=== PATIENT | male | born 1960 | race Native Hawaiian/Other Pacific Islander ===

== ENCOUNTER 2022-08-07 13:23 | Emergency (ER) | payer OTHER, SELFPAY ==
--- NOTE | ~2022-08-07 | XR_ITS ---
EXAMINATION: XR CHEST CLINICAL INFORMATION: Cough and shortness of breath COMPARISON: None TECHNIQUE: 2 views of the chest were obtained. FINDINGS: The lungs appear clear. No airspace consolidation, pleural effusion, or pneumothorax. Small 2 mm nodular density in the right lower lung, which may represent a bone island or calcified granuloma. Slightly tortuous descending thoracic aorta. Otherwise, normal cardiomediastinal silhouette. No evidence of pulmonary edema. No acute osseous injury. XR/XR chest 2V IMPRESSION: 1. No acute pulmonary process.
[2022-08-07 13:54] VITALS: BP 144/75; PULSE 65; RESP 18; TEMP 36.8; O2SAT 98; BMI 23.8
--- NOTE | 2022-08-07 13:54 | ED_ITS ---
HPI - URI/Sore Throat General Chief Complaint: Upper Respiratory Symptoms <KATIE Rodriguez Last Filed: 08/07/22 13:57> Stated Complaint: Cough Chest Discomfort <KTAIE Rodriguez Last Filed: 08/07/22 13:57> Time Seen by Provider: 08/07/22 15:04 <KATIE Rodriguez - Last Filed: 08/07/22 13:57> Source: patient <KATIE Bermudez Last Filed: 08/07/22 17:06> Mode of arrival: ambulatory <KATIE Bermudez Last Filed: 08/07/22 17:06> Limitations: no limitations <KATIE Bermudez Last Filed: 08/07/22 17:06> History of Present Illness HPI Narrative: 61-year-old male presents to the ER for evaluation of productive cough for the last 1 month. He states he went to [facility] twice and had x- rays and viral test done that were unremarkable. He has been given a prescription of Augmentin which he completed. He has been taking Tessalon Oksana es with minimal relief. He was at urgent care today And was encouraged to come to the ER because he was complaining of chest discomfort. They recommended him to have blood tests. Patient states he has had chest discomfort when coughing only. It is worse when he touches his chest wall and coughs. He denies any pleuritic chest pain. The pain does not radiate. reports that everyone at home has been sick. <KATIE Bermudez Last Filed: 08/07/22 17:06> MD elicited complaint: cough <KATIE Bermudez Last Filed: 08/07/22 17:06> Onset (ago): week(s) (3) <KATIE Bermudez Last Filed: 08/07/22 17:06> Consistency: constant <KATIE Bermudez Last Filed: 08/07/22 17:06> Severity: moderate <KATIE Bermudez Last Filed: 08/07/22 17:06> Description of mucous: yellow <KATIE Bermudez Last Filed: 08/07/22 17:06> Able to tolerate fluids by mouth: Yes <KATIE Bermudez Last Filed: 08/07/22 17:06> Relieving factors: nothing <KATIE Bermudez Last Filed: 08/07/22 17:06> Context: sick contacts <KATIE Bermudez Last Filed: 08/07/22 17:06> Associated symptoms: sore throat, cough, chest pain and shortness of breath <KATIE Bermudez Last Filed: 08/07/22 17:06> Treatments prior to arrival: none <KATIE Bermudez Last Filed: 08/07/22 17:06> Related Data Home Medications: Previous Rx's Medication Instructions Recorded azithromycin 250 mg tablet See Rx Instructions PO .COMPLEX #6 08/07/22 (Zithromax Z-Tulio) tabs guaifenesin 1,200 mg tablet, 1,200 mg PO BID #14 tabs 08/07/22 extended release 12 hr (Mucinex) hydrocodone-homatropine 5 mg-1.5 5 ml PO Q4-6H PRN cough #60 mL 08/07/22 mg/5 mL (5 mL) oral syrup (Hycodan) prednisone 20 mg tablet 40 mg PO DAILY #10 tabs 08/07/22 <KATIE Rodriguez Last Filed: 08/07/22 13:57> Allergies/Adverse Reactions: Allergies Allergy/AdvReac Type Severity Reaction Status Date / Time No Known Allergies Allergy Verified 08/07/22 13:54 <KATIE Rodriguez Last Filed: 08/07/22 13:57> Review of Systems Review of Systems: Constitutional: No Fever, No Chills ENT/Mouth: No sore throat, No Rhinorrhea, No Swallowing Difficulty Eyes: No Eye Pain, No Swelling, No Redness Cardiovascular: + Chest Pain, No SOB, No Orthopnea, No Edema Respiratory: + Cough, + Sputum, No Wheezing, No dyspnea Gastrointestinal: No Nausea, No Vomiting, No Diarrhea, No abdominal Pain Musculoskeletal: No joint pain, No Myalgias Skin: No Skin Lesions, No rash Neuro: No Weakness, No Numbness, No Dizziness, + Headache Heme/Lymph: No Bruising, No Lymphadenopathy <KATIE Bermudez Last Filed: 08/07/22 17:06> PMFSH Social History Social History: Social History Advance Directives: No Advance Directives Information Provided: No <KATIE Rodriguez - Last Filed: 08/07/22 13:57> Physical Exam Vital Signs: Vital Signs: Last Vital Signs Temp 98.3 F 08/07/22 13:54 Pulse 65 08/07/22 13:54 Resp 18 08/07/22 13:54 BP 144/75 H 08/07/22 13:54 Pulse Ox 98 08/07/22 13:54 O2 Del Method 08/07/22 13:54 BMI result Body Mass Index 23.8 <KATIE Rodriguez - Last Filed: 08/07/22 13:57> Vital Signs: Last Vital Signs Temp 98.3 F 08/07/22 13:54 Pulse 65 08/07/22 13:54 Resp 18 08/07/22 13:54 BP 144/75 H 08/07/22 13:54 Pulse Ox 98 08/07/22 13:54 O2 Del Method 08/07/22 13:54 BMI result Body Mass Index 23.8 <KATIE Bermudez - Last Filed: 08/07/22 17:06> Appearance: Alert. Oriented X3. No acute distress. Eyes: Pupils equal, round and reactive to light. ENT: Pharynx With moist mucous membranes, moderate posterior pharyngeal erythema without tonsillar swelling or exudate. Uvula midline. Neck: Normal inspection. Neck supple. No lymphadenopathy CVS: Normal heart rate and rhythm. Pulses normal. Anterior chest wall ten derness throughout. dry hacking cough noted. Respiratory: No respiratory distress. Breath sounds normal. Abdomen: Soft and nontender. +BS x4 Skin: Skin warm and dry. Normal skin color. Normal skin turgor. No rashes. Extremities: No lower extremity edema. No calf tenderness or swelling Neuro: Oriented X 3. No motor deficit. No sensory deficit. <KATIE Bermudez - Last Filed: 08/07/22 17:06> Course Course Course Narrative: RME- 14pm - 61yoM presenting c family at bedside c c /o coughing x 22 days c sputum produtcion yellow in color with associated orthopnea/GOODSON and mild chest discomfort. Was seen at an urgent care and had an EKG and was told to stop come here for further evaluation treatment for possible blood clot. Denies any other symptoms. Plan: Labs, EKG, chest x-ray, COVID/RSV/flu swab. Patient is stable he will be sent back to the waiting room to be evaluated in the ER. <KATIE Rodriguez - Last Filed: 08/07/22 13:57> Reevaluation(s) Reevaluation #1: chest x-ray without pneumonia. EKG without ischemic changes. Chest pain is reproducible on examination. Troponin is only 8, not consistent with ACS. Most likely musculoskeletal chest pain associated with persistent coughing for the last 3-4 weeks. Will treat for acute bronchitis with course of steroids, Z- Tulio, antitussive. He was encourage follow-up with his PCP. Stable for discharge home with outpatient follow-up. <KATIE Bermudez - Last Filed: 08/07/22 17:06> Medical Decision Making Lab Data MDM Lab Attestation statement: I reviewed the patient's lab results. <KATIE Bermudez - Last Filed: 08/07/22 17:06> Result Diagrams: : 08/07/22 14:04 08/07/22 14:04 <KATIE Rodriguez - Last Filed: 08/07/22 13:57> Labs: Lab Results 08/07/22 08/07/22 08/07/22 Range/Units 14:04 14:04 14:04 WBC 3.2 L (4.8-10.8) X10*3/uL RBC 5.57 (4.60-5.80) X10*6/uL Hgb 10.0 L (14.0-18.0) g/dl Hct 33.4 L (42.0-52.0) % MCV 60.0 L (80.0-98.0) fL MCH 18.0 L (27.0-33.0) pg MCHC 29.9 L (31.0-36.0) g/dl RDW 15.0 (11.0-16.0) % Plt Count 294 (160-400) X10*3/uL MPV 11.0 (9.4-12.4) fL Immature Gran % (Auto) 0.3 (0.0-0.4) % Neut % (Auto) 42.6 L (45-73) % Lymph % (Auto) 45.7 H (20-40) % Sargent % (Auto) 7.6 (2-11) % Eos % (Auto) 3.5 (0-4) % Baso % (Auto) 0.3 (0-2) % Lymph # (Auto) 1.5 (1.2-4.9) X10*3/uL Sargent # (Auto) 0.2 (0.1-1.2) X10*3/uL Eos # (Auto) 0.1 (0.0-0.4) X10*3/uL Baso # (Auto) 0.0 (0.0-0.2) X10*3/uL Abs Immat Gran (auto) 0.01 (0.00-0.03) X10*3/uL Absolute Neuts (auto) 1.4 L (2.0-8.3) x10*3/uL Absolute Nucleated RBC 0.000 (0.0-0.012) X10*3/uL Nucleated RBC % (auto) 0.0 (0.0-0.2) /100WBC PT 12.6 (10.0-13.1) SEC INR 1.1 (0.9-1.1) Sodium 141 (135-145) mmol/L Potassium 3.9 (3.3-5.1) mmol/L Chloride 110 H (96-108) mmol/L Carbon Dioxide 25 (22-29) mmol/L Anion Gap 10 L (12-20) BUN 17 H (9-16) mg/dL Creatinine 0.75 (0.5-1.4) mg/dL Estim Creat Clear Calc 88.8 Estimated GFR > 60 Random Glucose 104 (60-115) mg/dL Calcium 8.6 (8.4-10.2) mg/dL Magnesium 2.4 (1.6-2.6) mg/dL Total Bilirubin 0.6 (0.0-1.0) mg/dL AST 50 H (5-37) U/L ALT 36 (0-40) U/L Alkaline Phosphatase 68 (39-117) U/L Troponin I High Sens (<3.5-35.0) ng/L Total Protein 7.3 (6.5-8.0) g/dL Albumin 4.1 (3.5-5.0) g/dL Influenza Type A (PCR) (Negative) Influenza Type B (PCR) (Negative) RSV RNA Qual (PCR) (Negative) SARS-CoV-2 RNA (RT-PCR) (Negative) 08/07/22 08/07/22 Range/Units 14:04 14:04 WBC (4.8-10.8) X10*3/uL RBC (4.60-5.80) X10*6/uL Hgb (14.0-18.0) g/dl Hct (42.0-52.0) % MCV (80.0-98.0) fL MCH (27.0-33.0) pg MCHC (31.0-36.0) g/dl RDW (11.0-16.0) % Plt Count (160-400) X10*3/uL MPV (9.4-12.4) fL Immature Gran % (Auto) (0.0-0.4) % Neut % (Auto) (45-73) % Lymph % (Auto) (20-40) % Sargent % (Auto) (2-11) % Eos % (Auto) (0-4) % Baso % (Auto) (0-2) % Lymph # (Auto) (1.2-4.9) X10*3/uL Sargent # (Auto) (0.1-1.2) X10*3/uL Eos # (Auto) (0.0-0.4) X10*3/uL Baso # (Auto) (0.0-0.2) X10*3/uL Abs Immat Gran (auto) (0.00-0.03) X10*3/uL Absolute Neuts (auto) (2.0-8.3) x10*3/uL Absolute Nucleated RBC (0.0-0.012) X10*3/uL Nucleated RBC % (auto) (0.0-0.2) /100WBC PT (10.0-13.1) SEC INR (0.9-1.1) Sodium (135-145) mmol/L Potassium (3.3-5.1) mmol/L Chloride (96-108) mmol/L Carbon Dioxide (22-29) mmol/L Anion Gap (12-20) BUN (9-16) mg/dL Creatinine (0.5-1.4) mg/dL Estim Creat Clear Calc Estimated GFR Random Glucose (60-115) mg/dL Calcium (8.4-10.2) mg/dL Magnesium (1.6-2.6) mg/dL Total Bilirubin (0.0-1.0) mg/dL AST (5-37) U/L ALT (0-40) U/L Alkaline Phosphatase (39-117) U/L Troponin I High Sens 8.3 (<3.5-35.0) ng/L Total Protein (6.5-8.0) g/dL Albumin (3.5-5.0) g/dL Influenza Type A (PCR) NEGATIVE (Negative) Influenza Type B (PCR) NEGATIVE (Negative) RSV RNA Qual (PCR) NEGATIVE (Negative) SARS-CoV-2 RNA (RT-PCR) NEGATIVE (Negative) <KATIE Rodriguez - Last Filed: 08/07/22 13:57> Lab Results 08/07/22 08/07/22 08/07/22 Range/Units 14:04 14:04 14:04 WBC 3.2 L (4.8-10.8) X10*3/uL RBC 5.57 (4.60-5.80) X10*6/uL Hgb 10.0 L (14.0-18.0) g/dl Hct 33.4 L (42.0-52.0) % MCV 60.0 L (80.0-98.0) fL MCH 18.0 L (27.0-33.0) pg MCHC 29.9 L (31.0-36.0) g/dl RDW 15.0 (11.0-16.0) % Plt Count 294 (160-400) X10*3/uL MPV 11.0 (9.4-12.4) fL Immature Gran % (Auto) 0.3 (0.0-0.4) % Neut % (Auto) 42.6 L (45-73) % Lymph % (Auto) 45.7 H (20-40) % Sargent % (Auto) 7.6 (2-11) % Eos % (Auto) 3.5 (0-4) % Baso % (Auto) 0.3 (0-2) % Lymph # (Auto) 1.5 (1.2-4.9) X10*3/uL Sargent # (Auto) 0.2 (0.1-1.2) X10*3/uL Eos # (Auto) 0.1 (0.0-0.4) X10*3/uL Baso # (Auto) 0.0 (0.0-0.2) X10*3/uL Abs Immat Gran (auto) 0.01 (0.00-0.03) X10*3/uL Absolute Neuts (auto) 1.4 L (2.0-8.3) x10*3/uL Absolute Nucleated RBC 0.000 (0.0-0.012) X10*3/uL Nucleated RBC % (auto) 0.0 (0.0-0.2) /100WBC PT 12.6 (10.0-13.1) SEC INR 1.1 (0.9-1.1) Sodium 141 (135-145) mmol/L Potassium 3.9 (3.3-5.1) mmol/L Chloride 110 H (96-108) mmol/L Carbon Dioxide 25 (22-29) mmol/L Anion Gap 10 L (12-20) BUN 17 H (9-16) mg/dL Creatinine 0.75 (0.5-1.4) mg/dL Estim Creat Clear Calc 88.8 Estimated GFR > 60 Random Glucose 104 (60-115) mg/dL Calcium 8.6 (8.4-10.2) mg/dL Magnesium 2.4 (1.6-2.6) mg/dL Total Bilirubin 0.6 (0.0-1.0) mg/dL AST 50 H (5-37) U/L ALT 36 (0-40) U/L Alkaline Phosphatase 68 (39-117) U/L Troponin I High Sens (<3.5-35.0) ng/L Total Protein 7.3 (6.5-8.0) g/dL Albumin 4.1 (3.5-5.0) g/dL Influenza Type A (PCR) (Negative) Influenza Type B (PCR) (Negative) RSV RNA Qual (PCR) (Negative) SARS-CoV-2 RNA (RT-PCR) (Negative) 08/07/22 08/07/22 Range/Units 14:04 14:04 WBC (4.8-10.8) X10*3/uL RBC (4.60-5.80) X10*6/uL Hgb (14.0-18.0) g/dl Hct (42.0-52.0) % MCV (80.0-98.0) fL MCH (27.0-33.0) pg MCHC (31.0-36.0) g/dl RDW (11.0-16.0) % Plt Count (160-400) X10*3/uL MPV (9.4-12.4) fL Immature Gran % (Auto) (0.0-0.4) % Neut % (Auto) (45-73) % Lymph % (Auto) (20-40) % Sargent % (Auto) (2-11) % Eos % (Auto) (0-4) % Baso % (Auto) (0-2) % Lymph # (Auto) (1.2-4.9) X10*3/uL Sargent # (Auto) (0.1-1.2) X10*3/uL Eos # (Auto) (0.0-0.4) X10*3/uL Baso # (Auto) (0.0-0.2) X10*3/uL Abs Immat Gran (auto) (0.00-0.03) X10*3/uL Absolute Neuts (auto) (2.0-8.3) x10*3/uL Absolute Nucleated RBC (0.0-0.012) X10*3/uL Nucleated RBC % (auto) (0.0-0.2) /100WBC PT (10.0-13.1) SEC INR (0.9-1.1) Sodium (135-145) mmol/L Potassium (3.3-5.1) mmol/L Chloride (96-108) mmol/L Carbon Dioxide (22-29) mmol/L Anion Gap (12-20) BUN (9-16) mg/dL Creatinine (0.5-1.4) mg/dL Estim Creat Clear Calc Estimated GFR Random Glucose (60-115) mg/dL Calcium (8.4-10.2) mg/dL Magnesium (1.6-2.6) mg/dL Total Bilirubin (0.0-1.0) mg/dL AST (5-37) U/L ALT (0-40) U/L Alkaline Phosphatase (39-117) U/L Troponin I High Sens 8.3 (<3.5-35.0) ng/L Total Protein (6.5-8.0) g/dL Albumin (3.5-5.0) g/dL Influenza Type A (PCR) NEGATIVE (Negative) Influenza Type B (PCR) NEGATIVE (Negative) RSV RNA Qual (PCR) NEGATIVE (Negative) SARS-CoV-2 RNA (RT-PCR) NEGATIVE (Negative) <KATIE Bermudez - Last Filed: 08/07/22 17:06> Independent Interpretation I performed an independent interpretation of an: EKG <KATIE Bermudez - Last Filed: 08/07/22 17:06> Interpretation: Normal sinus rhythm, LVH with repolarization abnormality, ventricular rate 63 beats per minute, normal ID interval, normal QTC, no ST segment elevations depressions. <KATIE Bermudez - Last Filed: 08/07/22 17:06> Discharge Plan Discharge Clinical Impression: Bronchitis <KATIE Rodriguez - Last Filed: 08/07/22 13:57> Patient Disposition: Home, Self-Care <KATIE Rodriguez - Last Filed: 08/07/22 13:57> Instructions: Acute Bronchitis (ED) <KATIE Rodriguez - Last Filed: 08/07/22 13:57> Additional Instructions: you tested you tested negative for influenza a, influenza B, RSV and COVID. Your chest x-ray did not show any evidence of pneumonia. Take the prescribed medications for bronchitis. Your chest discomfort is due to persistent coughing. Take Tylenol and Motrin as needed for pain. Follow-up with your doctor next week. If you develop new or worsening symptoms call 911 or come back to the ER for further evaluation. <KATIE Rodriguez - Last Filed: 08/07/22 13:57> Prescriptions: New prednisone 20 mg tablet 40 mg PO DAILY Qty: 10 0RF hydrocodone-homatropine [Hycodan] 5-1.5 mg/5 mL (5 mL) syrup 5 ml PO Q4-6H PRN (Reason: cough) Qty: 60 0RF Rx Instructions: Partial Fill upon patient request. Mucinex 1,200 mg tablet extended release 12hr 1,200 mg PO BID Qty: 14 0RF azithromycin [Zithromax Z-Tulio] 250 mg tablet See Rx Instructions .ROUTE .COMPLEX Qty: 6 0RF Rx Instructions: take 500 mg today (day 1), then 250 mg for 4 days (days 2-5) <KATIE Rodriguez - Last Filed: 08/07/22 13:57>
--- NOTE | 2022-08-07 13:54 | ECG_ITS ---
Test Reason : SOB Blood Pressure : / mmHG Vent. Rate : 063 BPM Atrial Rate : 063 BPM P-R Int : 138 ms QRS Dur : 094 ms QT Int : 418 ms P-R-T Axes : 002 010 094 degrees QTc Int : 427 ms Normal sinus rhythm Left ventricular hypertrophy with repolarization abnormality ( R in aVL , Sokolow-Weller , [place] product , Romhilt-Tompkins ) Abnormal ECG No previous ECGs available Referred By: Katerin Chavez Electronically Signed By:HAKEEM BUNN
[2022-08-07 14:10] LABS: MANUAL DIFF FLAG NO
[2022-08-07 14:15] LABS: Basophils Percent Auto 0.3 % (0-2); Eosinophils Absolute Auto 0.1 X10*3/uL (0.0-0.4); Eosinophils Percent Auto 3.5 % (0-4); Hematocrit 33.4 % (42.0-52.0); Imm Gran Abs Auto 0.01 X10*3/uL (0.00-0.03); Imm Gran Pct Auto 0.3 % (0.0-0.4); Lymphocytes Absolute Auto 1.5 X10*3/uL (1.2-4.9); Lymphocytes Percent Auto 45.7 % (20-40); Mean Corpuscular HGB Conc 29.9 g/dl (31.0-36.0); Monocytes Absolute Auto 0.2 X10*3/uL (0.1-1.2); Monocytes Percent Auto 7.6 % (2-11); Neutrophils Absolute Auto 1.4 x10*3/uL (2.0-8.3); Neutrophils Percent Auto 42.6 % (45-73); Platelet Count 294 X10*3/uL (160-400); Red Blood Count 5.57 X10*6/uL (4.60-5.80); White Blood Count 3.2 X10*3/uL (4.8-10.8)
[2022-08-07 14:18] LABS: INTERNATIONAL NORM RATIO 1.1 (0.9-1.1); Prothrombin Time 12.6 SEC (10.0-13.1)
[2022-08-07 14:29] LABS: Alanine Aminotransferase 36 U/L (0-40); Albumin Level 4.1 g/dL (3.5-5.0); Alkaline Phosphatase 68 U/L (39-117); Anion Gap 10 (12-20); Aspartate Amino Transferase 50 U/L (5-37); Bilirubin Total 0.6 mg/dL (0.0-1.0); Blood Urea Nitrogen 17 mg/dL (9-16); Calcium 8.6 mg/dL (8.4-10.2); Carbon Dioxide 25 mmol/L (22-29); Chloride 110 mmol/L (96-108); Creatinine Clr Calc Pharmacy 88.8; Estimated Glomerular Filt Rate > 60; Glucose Random 104 mg/dL (60-115); Magnesium 2.4 mg/dL (1.6-2.6); Potassium 3.9 mmol/L (3.3-5.1); Sodium 141 mmol/L (135-145); Total Protein 7.3 g/dL (6.5-8.0)
--- OUTSIDE RECORDS SUMMARY | 2022-08-07 14:42 | XMS_ITS | Continuity of Care Document ---
:1960 Author Organization [facility] Address [address] [place] [address]- Care Team Providers Name Role Phone Juan DOMINGUEZ, Pennie Cano Primary Care Physician Encounter [facility] [place] Date(s): 06/10/21 - 07/10/[address] [address] [place] Attending Physician: Philipp Miller Admitting Physician: AdmPhilipp beaver Referring Physician: AdmtrPhilipp Allergies, Adverse Reactions, Alerts Substance Reaction Severity Status Other Environmental Allergy seasonal Acti ve Medications meloxicam 15 mg oral tablet 1 tablet = 15 mg, By Mouth, Daily, # 30 tablet, 0 Refills, Maintenance, 10/13/18 12:44:25 EST, Tablet Start Date: 10/13/18 Status: Orderedomeprazole 20 mg oral enteric coated capsule 1 capsule = 20 mg, By Mouth, Daily, # 30 capsule, 0 Refills, Maintenance, 10/13/18 12:44:51 EST, EC Capsule Start Date: 10/13/18 Status: OrderedoxyCODONE 5 mg oral tablet 5 mg, 1, tablet, By Mouth, Every 6 hours, PRN, Refills 0, Tot. Refills 0, Maintenance, as needed forpain, 06/17/21 8:27:00 EDT, Partial fill upon patient request if the prescription is for a schedule II opioid drug. Start Date: 06/17/21 Status: Orderedtamsulosin 0.4 mg oral capsule 0.4 mg, 1, capsule, By Mouth, Daily, # 30 capsule, Refills 0, Maintenance, 10/13/18 12:46:34 EST Start Date: 10/13/18 Status: Ordered Social History Social History Type Response Smoking Status Former smoker, quit more sadia n 30 days ago; Other: Quit around 2010, smoked for 1.5 years; entered on: 02/10/21 Sex
--- OUTSIDE RECORDS SUMMARY | 2022-08-07 14:42 | XMS_ITS | Continuity of Care Document ---
:1960 Author Organization [facility] Address [address] [place] [address] Drive [address] [place] [address]- Care Team Providers Name Role Phone Dottie Gan Primary Care Physician Encounter [facility] [place] Date(s): 02/10/21 - 03/12/[address] [place], [place] [address] Attending Physician: Philipp Miller Admitting Physician: Admtr, Philipp Referring Physician: Admtr, Ar8 Allergies, Adverse Reactions, Alerts Substance Reaction Severity [...] EST, EC Capsule Start Date: 10/13/18 Status: Orderedtamsulosin 0.4 mg oral capsule 0.4 mg, 1, capsule, By Mouth, Daily, # 30 capsule, Refills 0, Maintenance, 10/13/18 12:46:34 EST Start Date: 10/13/18 Status: Ordered Social History Social History Type Response Smoking Status Former smoker, quit more sadia n 30 days ago; Other: Quit around 2010, smoked for 1.5 years; entered on: 02/10/21 Sex
--- OUTSIDE RECORDS SUMMARY | 2022-08-07 14:42 | XMS_ITS | Continuity of Care Document ---
:1960 Author Organization [facility] Address [address] [place] [address] Drive [address] [place] [address]- Care Team Providers Name Role Phone Dottie Gan Primary Care Physician Encounter [facility] [place] Date(s): 02/10/21 - 02/17/[address] [place] [address]- Attending Physician: Jordan Kern MD Referring Physician: Hardy Glover MD Allergies, Adverse Reactions, Alerts Substance Reaction Severity [...] 12:46:34 EST Start Date: 10/13/18 Status: Ordered Procedures Procedure Date Related Diagnosis Body Site Status History of repair of inguinal hernia 2008 Completed Vital Signs Most recent to oldest [Reference Range]: 1 Height 165 cm (02/10/21 10:30 AM) Weight 78.9 kg (02/10/21 10:30 AM) Pulse Rate [55-90 bpm] 66 bpm (02/10/21 10:30 AM) Body Mass Index [18.5-24.99] 28.98 *H* (02/10/21 10:30 AM) Blood Pressure [90-138/55-84 mm Hg] 136/84 mm Hg (02/10/21 10:30 AM) Temperature [96.8-100.4 DegF] 97.5 DegF (02/10/21 10:30 AM) Blood pressure sites Arm, left (02/10/21 10:30 AM) Temperature Route Temporal (02/10/21 10:30 AM) Dry Weight 78.9 kg (02/10/21 10:30 AM) Weight Obtained Via Standing scale (02/10/21 10:30 AM) Social History Social History Type Response Smoking Status Former smoker, quit more sadia n 30 days ago; Other: Quit around 2010, smoked for 1.5 years; entered on: 02/10/21 Sex
--- OUTSIDE RECORDS SUMMARY | 2022-08-07 14:42 | XMS_ITS | Continuity of Care Document ---
:1960 Author Organization [facility] Address [address] [place] [id number]- Care Team Providers Name Role Phone Juan DOMINGUEZ, Pennie Cano Primary Care Physician Encounter [facility] [place] Date(s): 06/10/21 - 02/26/22 [facility] [address] [place], [place] [address] Discharge Disposition: A-D/C Home Attending Physician: Majo Nevarez MD Admitting Physician: Majo Nevarez MD Referring Physician: Dottie Gan Allergies, Adverse Reactions, Alerts Substance Reaction Severity [...]
[2022-08-07 14:52] LABS: Influenza A PCR NEGATIVE (Negative); Influenza B PCR NEGATIVE (Negative); Resp Syncy Virus RNA Qual PCR NEGATIVE (Negative); SARS COV2 PCR INHOUSE NEGATIVE (Negative)
[2022-08-07 16:45] LABS: Troponin-I High Sensitivity 8.3 ng/L (<3.5-35.0)
== END 2022-08-07 17:20 | disposition home or self-care (01) ==
PROVIDERS: Physician Assistant; Physician Assistant Medical; Emergency Provider Student in an Organized Health Care Education/Training Program; PCP Physician Assistant Medical
DX: J40 Bronchitis, not specified as acute or chronic (principal); Z20.822 Contact with and (suspected) exposure to COVID-19; R51.9 Headache, unspecified
CPT/HCPCS: 0241U; 71046; 80053; 83735; 84484; 85025; 85610; 93005; 99283